=== PATIENT | female | born 1965 | race Two or more races ===

== ENCOUNTER 2017-10-31 15:26 | Outpatient (CLI) | payer OTHER ==
[~2017-10-31 15:26] MED LIST: LIPITOR20 MG; NORVASC5 MG
== END 2017-10-31 15:35 | disposition home or self-care (01) ==
LOC: MAMO-SONO 15:26
DX: Z12.31 Encounter for screening mammogram for malignant neoplasm of breast (principal); N60.11 Diffuse cystic mastopathy of right breast; N60.12 Diffuse cystic mastopathy of left breast

== ENCOUNTER 2019-06-28 19:42 | Emergency (ER) | payer OTHER ==
[~2019-06-28] VITALS: Ht 157.5 cm; Wt 93.0 kg
[2019-06-29] MEDS ORDERED: PEPCID40 MG PO (06:19)
[2019-06-29] MEDS ORDERED: ZOFRAN4 MG PO (06:19)
== END 2019-06-29 06:21 ==
LOC: ER 19:42
DX: R10.13 Epigastric pain (principal)

== ENCOUNTER 2019-10-28 12:24 | Emergency (ER) | payer OTHER ==
[~2019-10-28] VITALS: Ht 149.9 cm; Wt 76.2 kg
[~2019-10-28 12:24] MED LIST changes: +PEPCID40 MG PO; +ZOFRAN4 MG PO
[2019-10-28] MEDS ORDERED: ICAPS AREDS2 T1 EACH PO (12:34)
[2019-10-28] MEDS ORDERED: FORTAMET500 MG PO (12:34)
[2019-10-28] MEDS ORDERED: HYDROCHLOROTH12.5 MG PO (12:35)
== END 2019-10-28 16:32 | disposition home or self-care (01) ==
LOC: ER 12:24
DX: I87.2 Venous insufficiency (chronic) (peripheral) (principal); M79.604 Pain in right leg; M25.511 Pain in right shoulder

== ENCOUNTER 2020-02-03 00:17 | Emergency (ER) | payer OTHER ==
[~2020-02-03] VITALS: Ht 149.9 cm; Wt 77.1 kg
[~2020-02-03 00:17] MED LIST changes: +FORTAMET500 MG PO; +HYDROCHLOROTH12.5 MG PO; +ICAPS AREDS2 T1 EACH PO
[2020-02-03] MEDS ORDERED: AMOX-CLAV 875-1 EACH PO (01:32)
[2020-02-03] MEDS ORDERED: MUPIROCIN22 GM TOP (01:32)
== END 2020-02-03 01:37 | disposition home or self-care (01) ==
LOC: ER 00:17
DX: S91.332A Puncture wound without foreign body, left foot, initial encounter (principal); W26.8XXA Contact with other sharp object(s), not elsewhere classified, initial encounter; Y93.89 Activity, other specified; Y92.018 Other place in single-family (private) house as the place of occurrence of the external cause; Y99.8 Other external cause status

== ENCOUNTER 2020-12-27 23:10 | Emergency (ER) | payer OTHER ==
[~2020-12-27] VITALS: Ht 157.5 cm; Wt 97.5 kg
[~2020-12-27 23:10] MED LIST changes: +AMOX-CLAV 875-1 EACH PO; +MUPIROCIN22 GM TOP
[2020-12-28] MEDS ORDERED: MOBIC15 MG PO (03:26)
== END 2020-12-28 03:36 ==
LOC: ER 23:10
DX: R07.9 Chest pain, unspecified (principal)

== ENCOUNTER 2024-05-20 22:03 | Emergency (ER) | payer OTHER ==
[~2024-05-20] VITALS: Ht 149.9 cm; Wt 75.3 kg
[~2024-05-20 22:03] MED LIST changes: +MOBIC15 MG PO
[2024-05-20] MEDS ORDERED: ZETIA10 MG (22:28)
[2024-05-20 22:30] VITALS: BP 114/58; O2SAT 100
[2024-05-20] MEDS ORDERED: IRBESARTAN150 MG PO (22:30)
[2024-05-21] MEDS ORDERED: MAG HYDROX/ALUMINUM HYD/SIMETH 30 ML BLIST.PACK PO STA (00:27)
[2024-05-21] MEDS ORDERED: ONDANSETRON HCL 2 MG/ML VIAL IV STA (00:29)
[2024-05-21] MEDS ORDERED: SUCRALFATE 1 G TABLET PO STA (00:29)
[2024-05-21 01:09] LABS: HEMATOCRIT 41.6 % (36.0-45.00); HEMOGLOBIN 14.4 g/dL (12.0-15.00); MEAN CELL VOLUME 94.9 fL (80.00-100.00); MEAN CORPUSCULAR HEMOGLOBIN 32.9 pg (27.00-32.0); MEAN CORPUSCULAR HGB CONC 34.7 g/dl (32.0-36.0); PLATELET COUNT 314 K/uL (150-450); RED BLOOD COUNT 4.38 M/uL (4.00-6.00); RED CELL DISTRIBUTION WIDTH 12.6 % (11.5-14.5)
[2024-05-21 01:27] LABS: CALCIUM 9.7 mg/dL (8.5-10.1); CREATININE SERUM 0.66 mg/dL (0.55-1.02); GFR 91.98; POTASSIUM 3.91 mEq/L (3.5-5.1)
[2024-05-21] MEDS ORDERED: FAMOTIDINE40 MG PO (02:55)
[2024-05-21] MEDS ORDERED: PROTONIX40 MG PO (02:55)
[2024-05-21] MEDS ORDERED: ZOFRAN8 MG PO (02:55)
[2024-05-21] MEDS ORDERED: PHENAGIL TABLE1 EACH PO (03:01)
== END 2024-05-21 03:41 ==
LOC: ER 22:05
PROVIDERS: General Practice
DX: K21.9 Gastro-esophageal reflux disease without esophagitis (principal); E11.9 Type 2 diabetes mellitus without complications; Z79.84 Long term (current) use of oral hypoglycemic drugs; I10 Essential (primary) hypertension